=== PATIENT | female | born 1980 | race Two or more races ===

== ENCOUNTER 2019-10-26 20:16 | Inpatient (IN) | payer MEDICARE, MEDICAID ==
[~2019-10-26] VITALS: Ht 172.7 cm; Wt 57.6 kg
[2019-10-26 22:06] LABS: BASOPHILS % (AUTO) 0.8 % (0.0-2.0); EOSINOPHILS % (AUTO) 1.5 % (1.0-6.0); HEMATOCRIT 40.4 % (36-46); HEMOGLOBIN 13.4 g/dL (12.0-16.0); MEAN CORPUSCULAR HEMOGLOBIN 30.4 pg (26.0-34.0); MEAN CORPUSCULAR HGB CONC 33.3 G/dL (31.0-37.0); MEAN CORPUSCULAR VOLUME 91 fL (80-100); MONOCYTES # (AUTO) 1.2 K/uL (0.1-1.0); MONOCYTES % (AUTO) 13.6 % (2.0-9.0); NEUTROPHILS # (AUTO) 5.3 K/uL (1.8-7.7); NEUTROPHILS % (AUTO) 61.1 % (40.0-70.0); PLATELET COUNT (AUTO) 317 K/uL (150-450); RED BLOOD CELL COUNT(AUTO) 4.42 MIL/uL (4.00-5.20); RED CELL DISTRIBUTION WIDTH 12.8 % (11.5-14.5)
[2019-10-26 22:09] LABS: ANION GAP 8 mmol/L (8-16); CALCIUM, TOTAL 9.3 mg/dL (8.8-10.5); CARBON DIOXIDE 27 mmol/L (22-29); CHLORIDE 106 mmol/L (98-107); CREATININE 0.74 mg/dL (0.60-1.30); GLOMERULAR FILTR. RATE CALC > 60 mL/min (>60); GLUCOSE,RANDOM 93 mg/dL (70-110); POTASSIUM 3.9 mmol/L (3.5-5.1); SODIUM SERUM 141 mmol/L (136-145); UREA NITROGEN, BLOOD 26 mg/dL (7-18)
[2019-10-26 22:15] LABS: ALANINE AMINOTRANSFERASE 32 U/L (12-78); ALBUMIN 3.6 g/dL (3.4-5.0); ALKALINE PHOSPHATASE 63 U/L (46-116); ASPARTATE AMINOTRANSFERASE 31 U/L (15-37); BILIRUBIN,TOTAL 0.3 mg/dL (0.1-1.0); TOTAL PROTEIN, SERUM 7.9 g/dL (6.4-8.2)
[2019-10-26] MEDS ORDERED: LORazepam 2 MG TABLET PO PRN (22:30)
[2019-10-26] MEDS ORDERED: ZOLPIDEM TARTRATE 10 MG TABLET PO PRN (22:30)
[2019-10-26] MEDS ORDERED: PERMETHRIN 1% 60 ML LOTION TP ONE (23:30)
[2019-10-26] MEDS ORDERED: PERMETHRIN 5% 60 GM CREAM TP ONE (23:30)
[2019-10-27] MEDS ORDERED: DiphenhydrAMINE HCL 50 MG/ML VIAL IM ONE (00:15)
[2019-10-27] MEDS ORDERED: HALOPERIDOL LACTATE 5 MG/ML VIAL IM ONE (00:15)
[2019-10-27] MEDS ORDERED: LORazepam 2 MG/ML VIAL IM ONE (00:15)
[2019-10-27 03:21] VITALS: BP 128/79
[2019-10-27 03:41] VITALS: BP 128/79
[2019-10-27 16:05] VITALS: BP 110/54
[2019-10-27] MEDS: OLANZapine 5 MG RAPDIS TABLET PO PRN (18:07)
[2019-10-27] MEDS ORDERED: RisperiDONE 1 MG TABLET PO SCH (21:00)
[2019-10-28 07:42] LABS: CHOL/HDL RATIO 3.2 (3.9-5.7)
[2019-10-28 17:47] VITALS: BP 116/61
[2019-10-28] MEDS: RisperiDONE 2 MG TABLET PO SCH (20:43)
[2019-10-28] MEDS: DiphenhydrAMINE HCL 25 MG CAPSULE PO SCH (20:43)
[2019-10-28] MEDS ORDERED: RisperiDONE 2 MG TABLET PO SCH (21:00)
[2019-10-29] MEDS ORDERED: DIVALPROEX SODIUM 500 MG ER TABLET PO SCH (09:00)
[2019-10-29] MEDS: OLANZapine 5 MG RAPDIS TABLET PO PRN (15:58)
[2019-10-29 16:51] VITALS: BP 118/62
[2019-10-29] MEDS: RisperiDONE 2 MG TABLET PO SCH (20:10)
[2019-10-29] MEDS: DiphenhydrAMINE HCL 25 MG CAPSULE PO SCH (20:10)
[2019-10-29] MEDS ORDERED: RisperiDONE 2 MG TABLET PO SCH (21:00)
[2019-10-29] MEDS ORDERED: MAG HYDROX/AL HYDROX/SIMETH ES 30 ML SUSPENSION UDCUP PO PRN (21:15)
[2019-10-29] MEDS ORDERED: MAGNESIUM HYDROXIDE SUSPENSION 30 ML UDCUP PO PRN (21:15)
[2019-10-29] MEDS ORDERED: HydrOXYzine PAMOATE 50 MG CAPSULE PO PRN (21:15)
[2019-10-29] MEDS ORDERED: TUBERCULIN, PURIFIED PROTEIN DERIVATIVE 5 TU/0.1 ML SYRINGE ID ONE (21:15)
[2019-10-29] MEDS ORDERED: OLANZapine 5 MG RAPDIS TABLET PO PRN (21:15)
[2019-10-29] MEDS ORDERED: LOPERAMIDE HCL 2 MG CAPSULE PO PRN (21:15)
[2019-10-29] MEDS ORDERED: GuaiFENesin/D-METHORPHAN [SUGAR-FREE] 200-20MG/10 ML SYRUP UDCUP PO PRN (21:15)
[2019-10-29] MEDS ORDERED: PROMETHAZINE HCL 25 MG TABLET PO PRN (21:15)
[2019-10-30] MEDS: FOLIC ACID 1 MG TABLET PO SCH (09:28)
[2019-10-30] MEDS: MULTIVITAMINS WITH MINERALS, THERAPEUTIC TABLET PO SCH (09:28)
[2019-10-30] MEDS: THIAMINE 100 MG TABLET PO SCH ×2 (09:28→17:38)
[2019-10-30] MEDS: DIVALPROEX SODIUM 500 MG ER TABLET PO SCH (09:28)
[2019-10-30] MEDS: NALTREXONE HCL 50 MG TABLET PO SCH (09:29)
[2019-10-30 16:25] VITALS: BP 113/62
[2019-10-30] MEDS ORDERED: OLANZapine 5 MG RAPDIS TABLET PO SCH (21:00)
[2019-10-31 08:00] VITALS: BP 134/63
[2019-10-31] MEDS: MULTIVITAMINS WITH MINERALS, THERAPEUTIC TABLET PO SCH (08:20)
[2019-10-31] MEDS: THIAMINE 100 MG TABLET PO SCH ×2 (08:20→16:36)
[2019-10-31] MEDS: DIVALPROEX SODIUM 500 MG ER TABLET PO SCH (08:20)
[2019-10-31] MEDS: FOLIC ACID 1 MG TABLET PO SCH (08:20)
[2019-10-31] MEDS: NALTREXONE HCL 50 MG TABLET PO SCH (08:21)
[2019-10-31 17:01] VITALS: BP 124/70
[2019-10-31] MEDS: OLANZapine 10 MG RAPDIS TABLET PO SCH (20:22)
[2019-11-01 08:21] LABS: FREE T4 (FREE THYROXINE) 0.73 ng/dL (0.76-1.46); THYROID STIMULATING HORMONE 0.5 uIU/mL (0.36-3.74)
[2019-11-01] MEDS: MULTIVITAMINS WITH MINERALS, THERAPEUTIC TABLET PO SCH (08:50)
[2019-11-01] MEDS: THIAMINE 100 MG TABLET PO SCH ×2 (08:50→16:46)
[2019-11-01] MEDS: FOLIC ACID 1 MG TABLET PO SCH (08:50)
[2019-11-01] MEDS: DIVALPROEX SODIUM 500 MG ER TABLET PO SCH (08:50)
[2019-11-01] MEDS: NALTREXONE HCL 50 MG TABLET PO SCH (08:51)
[2019-11-01 16:00] VITALS: BP 103/73
[2019-11-01] MEDS: OLANZapine 10 MG RAPDIS TABLET PO SCH (20:21)
[2019-11-01 23:50] VITALS: BP 115/69
[2019-11-01] MEDS: ACETAMINOPHEN 325 MG TABLET PO PRN (23:50)
[2019-11-02] MEDS: NALTREXONE HCL 50 MG TABLET PO SCH (08:09)
[2019-11-02] MEDS: MULTIVITAMINS WITH MINERALS, THERAPEUTIC TABLET PO SCH (08:09)
[2019-11-02] MEDS: THIAMINE 100 MG TABLET PO SCH ×2 (08:09→16:05)
[2019-11-02] MEDS: DIVALPROEX SODIUM 500 MG ER TABLET PO SCH (08:09)
[2019-11-02] MEDS: FOLIC ACID 1 MG TABLET PO SCH (08:10)
[2019-11-02 08:41] VITALS: BP 125/63
[2019-11-02 16:00] VITALS: BP 104/66
[2019-11-02] MEDS ORDERED: PALIPERIDONE PALMITATE 234 MG/1.5 ML SYRINGE IM ONE (19:15)
[2019-11-02] MEDS ORDERED: PALIPERIDONE 1.5 MG ER TABLET PO PRN (19:15)
[2019-11-02] MEDS ORDERED: PALIPERIDONE 3 MG ER TABLET PO SCH (21:00)
[2019-11-03] MEDS: ACETAMINOPHEN 325 MG TABLET PO PRN (05:27)
[2019-11-03] MEDS: THIAMINE 100 MG TABLET PO SCH ×2 (08:29→16:39)
[2019-11-03] MEDS: NALTREXONE HCL 50 MG TABLET PO SCH (08:29)
[2019-11-03] MEDS: FOLIC ACID 1 MG TABLET PO SCH (08:29)
[2019-11-03] MEDS: DIVALPROEX SODIUM 250 MG ER TABLET PO SCH (08:29)
[2019-11-03] MEDS: MULTIVITAMINS WITH MINERALS, THERAPEUTIC TABLET PO SCH (08:29)
[2019-11-03 09:32] VITALS: BP 138/80
[2019-11-03] MEDS ORDERED: PENICILLIN G BENZATHINE LA 2,400,000 UNITS/4 ML SYRINGE IM ONE (14:00)
[2019-11-03 16:00] VITALS: BP 105/60
[2019-11-04 08:00] VITALS: BP 123/61
[2019-11-04] MEDS: DIVALPROEX SODIUM 250 MG ER TABLET PO SCH (08:34)
[2019-11-04] MEDS: MULTIVITAMINS WITH MINERALS, THERAPEUTIC TABLET PO SCH (08:34)
[2019-11-04] MEDS: FOLIC ACID 1 MG TABLET PO SCH (08:35)
[2019-11-04] MEDS: THIAMINE 100 MG TABLET PO SCH ×2 (08:35→15:57)
[2019-11-04] MEDS: NALTREXONE HCL 50 MG TABLET PO SCH (08:35)
[2019-11-04] MEDS ORDERED: PERMETHRIN 1% 60 ML LOTION TP ONE (15:30)
[2019-11-04 16:13] VITALS: BP 115/64
[2019-11-05 08:00] VITALS: BP 101/62
[2019-11-05] MEDS: THIAMINE 100 MG TABLET PO SCH ×2 (08:36→16:02)
[2019-11-05] MEDS: MULTIVITAMINS WITH MINERALS, THERAPEUTIC TABLET PO SCH (08:36)
[2019-11-05] MEDS: DIVALPROEX SODIUM 250 MG ER TABLET PO SCH (08:36)
[2019-11-05] MEDS: NALTREXONE HCL 50 MG TABLET PO SCH (08:37)
[2019-11-05] MEDS: FOLIC ACID 1 MG TABLET PO SCH (08:37)
[2019-11-05 18:46] VITALS: BP 82/43
[2019-11-06] MEDS ORDERED: PALIPERIDONE PALMITATE 156 MG/ML SYRINGE IM ONE (09:00)
[2019-11-06] MEDS: FOLIC ACID 1 MG TABLET PO SCH (09:09)
[2019-11-06] MEDS: MULTIVITAMINS WITH MINERALS, THERAPEUTIC TABLET PO SCH (09:09)
[2019-11-06] MEDS: DIVALPROEX SODIUM 250 MG ER TABLET PO SCH (09:09)
[2019-11-06] MEDS: NALTREXONE HCL 50 MG TABLET PO SCH (09:09)
[2019-11-06] MEDS: THIAMINE 100 MG TABLET PO SCH ×2 (09:10→16:13)
[2019-11-06] MEDS ORDERED: NALT50TA PO (10:18)
[2019-11-06] MEDS ORDERED: DIVA-85 PO (10:18)
[2019-11-06] MEDS ORDERED: PALI117D IM (10:18)
[2019-11-06 16:00] VITALS: BP 94/60
[2019-11-07] MEDS: MULTIVITAMINS WITH MINERALS, THERAPEUTIC TABLET PO SCH (08:00)
[2019-11-07] MEDS: DIVALPROEX SODIUM 500 MG ER TABLET PO SCH (08:01)
[2019-11-07] MEDS: FOLIC ACID 1 MG TABLET PO SCH (08:01)
[2019-11-07] MEDS: NALTREXONE HCL 50 MG TABLET PO SCH (08:01)
[2019-11-07] MEDS: THIAMINE 100 MG TABLET PO SCH ×2 (08:01→16:57)
[2019-11-07 16:16] VITALS: BP 107/65
[2019-11-08 09:00] VITALS: BP 90/50
[2019-11-08] MEDS: DIVALPROEX SODIUM 500 MG ER TABLET PO SCH (09:02)
[2019-11-08] MEDS: MULTIVITAMINS WITH MINERALS, THERAPEUTIC TABLET PO SCH (09:02)
[2019-11-08] MEDS: FOLIC ACID 1 MG TABLET PO SCH (09:03)
[2019-11-08] MEDS: THIAMINE 100 MG TABLET PO SCH ×2 (09:03→17:45)
[2019-11-08] MEDS: NALTREXONE HCL 50 MG TABLET PO SCH (09:03)
[2019-11-08 16:22] VITALS: BP 105/55
[2019-11-09 08:00] VITALS: BP 95/48
[2019-11-09] MEDS: MULTIVITAMINS WITH MINERALS, THERAPEUTIC TABLET PO SCH (08:26)
[2019-11-09] MEDS: NALTREXONE HCL 50 MG TABLET PO SCH (08:26)
[2019-11-09] MEDS: DIVALPROEX SODIUM 500 MG ER TABLET PO SCH (08:26)
[2019-11-09 16:05] VITALS: BP 110/75
[2019-11-09] MEDS ORDERED: OLANZapine 5 MG RAPDIS TABLET PO PRN (20:30)
[2019-11-09] MEDS: OLANZapine 5 MG RAPDIS TABLET PO SCH (21:10)
[2019-11-10] MEDS: MULTIVITAMINS WITH MINERALS, THERAPEUTIC TABLET PO SCH (08:22)
[2019-11-10] MEDS: DIVALPROEX SODIUM 500 MG ER TABLET PO SCH (08:22)
[2019-11-10] MEDS: NALTREXONE HCL 50 MG TABLET PO SCH (08:22)
[2019-11-10] MEDS ORDERED: PERMETHRIN 5% 60 GM CREAM TP ONE (14:30)
[2019-11-10] MEDS ORDERED: PERMETHRIN 1% 60 ML LOTION TP ONE (14:45)
[2019-11-10 16:52] VITALS: BP 100/60
[2019-11-10] MEDS: OLANZapine 5 MG RAPDIS TABLET PO SCH (22:16)
[2019-11-11] MEDS: MULTIVITAMINS WITH MINERALS, THERAPEUTIC TABLET PO SCH (08:55)
[2019-11-11] MEDS: DIVALPROEX SODIUM 500 MG ER TABLET PO SCH (08:55)
[2019-11-11] MEDS: NALTREXONE HCL 50 MG TABLET PO SCH (08:55)
[2019-11-11 16:14] VITALS: BP 95/66
[2019-11-11] MEDS: OLANZapine 5 MG RAPDIS TABLET PO SCH (20:04)
[2019-11-11] MEDS ORDERED: OLANZapine 10 MG RAPDIS TABLET PO SCH (21:00)
[2019-11-12 08:00] VITALS: BP 94/51
[2019-11-12] MEDS: NALTREXONE HCL 50 MG TABLET PO SCH (08:35)
[2019-11-12] MEDS: DIVALPROEX SODIUM 500 MG ER TABLET PO SCH (08:35)
[2019-11-12] MEDS: MULTIVITAMINS WITH MINERALS, THERAPEUTIC TABLET PO SCH (08:35)
[2019-11-12] MEDS ORDERED: DIVA-80 PO (10:50)
[2019-11-12] MEDS ORDERED: OLAN7.5T2 PO (10:52)
[2019-11-12] MEDS ORDERED: PENICILLIN G BENZATHINE LA 2,400,000 UNITS/4 ML SYRINGE IM ONE (11:45)
[2019-11-12] MEDS ORDERED: PGLA4I IM (11:52)
[2019-11-12 16:36] VITALS: BP 101/77
[2019-11-12] MEDS ORDERED: OLANZapine 5 MG RAPDIS TABLET PO SCH (21:00)
[2019-11-13] MEDS: NALTREXONE HCL 50 MG TABLET PO SCH (08:08)
[2019-11-13] MEDS: DIVALPROEX SODIUM 500 MG ER TABLET PO SCH (08:08)
[2019-11-13] MEDS: MULTIVITAMINS WITH MINERALS, THERAPEUTIC TABLET PO SCH (08:08)
[2019-11-13 08:55] LABS: HIV 1-2 SCREEN 4TH GEN W/RFLX Non Reactive (Non Reactive)
== END 2019-11-13 14:15 | disposition home or self-care (01) | DRG 885 ==
LOC: EMS 20:16 → 3EX 22:16
PROVIDERS: ADMIT Psychiatry & Neurology Psychiatry; ATTEND Psychiatry & Neurology Psychiatry
DX: F25.0 Schizoaffective disorder, bipolar type (principal); R45.851 Suicidal ideations; F10.10 Alcohol abuse, uncomplicated; F19.10 Other psychoactive substance abuse, uncomplicated; F17.210 Nicotine dependence, cigarettes, uncomplicated; B86 Scabies; B85.2 Pediculosis, unspecified; Z20.828 Contact with and (suspected) exposure to other viral communicable diseases; Z59.0 Homelessness
CPT/HCPCS: 84439; 84443; 86592; 86593; 86609; 86631; 86632; 86780; 87389; G0378; G0480; J0561; J1200; J1630; J2060

== ENCOUNTER 2021-05-02 09:53 | Inpatient (IN) | payer MEDICARE, MEDICAID ==
[~2021-05-02] VITALS: Ht 154.9 cm; Wt 58.1 kg
[~2021-05-02 09:53] MED LIST: DIVA-80 PO; NALT50TA PO; OLAN7.5T22 PO; PGLA4I IM
[2021-05-02 12:09] LABS: BASOPHILS % (AUTO) 0.5 % (0.0-2.0); EOSINOPHILS % (AUTO) 2.4 % (1.0-6.0); HEMATOCRIT 34.3 % (36-46); HEMOGLOBIN 11.5 g/dL (12.0-16.0); LYMPHOCYTES # (AUTO) 1.3 K/uL (1.0-4.8); LYMPHOCYTES % (AUTO) 13.3 % (22.0-44.0); MEAN CORPUSCULAR HGB CONC 33.6 G/dL (31.0-37.0); MEAN CORPUSCULAR VOLUME 90 fL (80-100); MONOCYTES % (AUTO) 10.5 % (2.0-9.0); NEUTROPHILS # (AUTO) 6.9 K/uL (1.8-7.7); NEUTROPHILS % (AUTO) 73.3 % (40.0-70.0); PLATELET COUNT (AUTO) 455 K/uL (150-450); RED BLOOD CELL COUNT(AUTO) 3.84 MIL/uL (4.00-5.20); RED CELL DISTRIBUTION WIDTH 13.7 % (11.5-14.5)
[2021-05-02 12:27] LABS: ANION GAP 7 mmol/L (8-16); CALCIUM, TOTAL 9.1 mg/dL (8.8-10.5); CARBON DIOXIDE 27 mmol/L (22-29); CHLORIDE 105 mmol/L (98-107); GLOMERULAR FILTR. RATE CALC > 60 mL/min (>60); GLUCOSE,RANDOM 100 mg/dL (70-110); POTASSIUM 4.3 mmol/L (3.5-5.1); SODIUM SERUM 139 mmol/L (136-145); UREA NITROGEN, BLOOD 26 mg/dL (7-18)
[2021-05-02 12:31] LABS: ALANINE AMINOTRANSFERASE 34 U/L (12-78); ALBUMIN 2.7 g/dL (3.4-5.0); ALKALINE PHOSPHATASE 73 U/L (46-116); ASPARTATE AMINOTRANSFERASE 40 U/L (15-37); BILIRUBIN,TOTAL 0.2 mg/dL (0.1-1.0); TOTAL PROTEIN, SERUM 7.4 g/dL (6.4-8.2)
[2021-05-02 12:34] LABS: VALPROIC ACID < 3 mcg/mL (50-100)
[2021-05-02 15:32] LABS: COVID AG,FIA SOURCE NASOPHARYNGEAL
[2021-05-02] MEDS ORDERED: HALOPERIDOL 5 MG TABLET PO PRN (19:00)
[2021-05-02] MEDS ORDERED: ZOLPIDEM TARTRATE 10 MG TABLET PO PRN (19:00)
[2021-05-03] MEDS: LORazepam 2 MG TABLET PO PRN (06:06)
[2021-05-03 08:19] LABS: CHOL/HDL RATIO 2.4 (3.9-5.7); CHOLESTEROL 202 mg/dL (131-200); HDL CHOLESTEROL 85 mg/dL (40-60); LDL CHOL (CALC.) 104 mg/dL (0-130); TRIGLYCERIDES 66 mg/dL (15-150)
[2021-05-03] MEDS ORDERED: ACETAMINOPHEN 325 MG TABLET PO PRN (12:00)
[2021-05-03] MEDS ORDERED: MAG HYDROX/AL HYDROX/SIMETH ES 30 ML SUSPENSION UDCUP PO PRN (12:00)
[2021-05-03] MEDS ORDERED: PETROLATUM,WHITE 28 GM JELLY TP PRN (12:00)
[2021-05-03] MEDS ORDERED: MAGNESIUM HYDROXIDE SUSPENSION 30 ML UDCUP PO PRN (12:00)
[2021-05-03] MEDS ORDERED: GuaiFENesin/D-METHORPHAN [SUGAR-FREE] 200-20MG/10 ML SYRUP UDCUP PO PRN (12:00)
[2021-05-03] MEDS ORDERED: DOCUSATE SODIUM 100 MG CAPSULE PO PRN (12:00)
[2021-05-03] MEDS ORDERED: NICOTINE 14 MG/24 HOUR PATCH TD PRN (12:00)
[2021-05-03] MEDS ORDERED: CloNIDine HCL 0.1 MG TABLET PO PRN (12:00)
[2021-05-03] MEDS ORDERED: ONDANSETRON HCL 4 MG TABLET PO PRN (12:00)
[2021-05-03] MEDS ORDERED: ALBUTEROL SULFATE HFA 90 MCG/PUFF 8 GM INHALER IH PRN (12:00)
[2021-05-03] MEDS ORDERED: IBUPROFEN 400 MG TABLET PO PRN (12:00)
[2021-05-03 12:55] VITALS: BP 130/80
[2021-05-03 15:31] VITALS: BP 130/80
[2021-05-03 16:28] VITALS: BP 136/85
[2021-05-04 05:15] VITALS: BP 110/85
[2021-05-04 08:04] VITALS: BP 139/74
[2021-05-04 08:48] LABS: AMPHET/METH SCREEN,URINE POSITIVE (NEGATIVE); BARBITURATE SCREEN, URINE NEGATIVE (NEGATIVE); BENZODIAZEPINES SCREEN,URINE NEGATIVE (NEGATIVE); CANNABINOID SCREEN,URINE POSITIVE (NEGATIVE); COCAINE SCREEN,URINE NEGATIVE (NEGATIVE); METHADONE SCREEN, URINE NEGATIVE (NEGATIVE); OPIATE SCREEN,URINE NEGATIVE (NEGATIVE)
[2021-05-04 08:50] LABS: PHENCYCLIDINE SCREEN,URINE NEGATIVE (NEGATIVE)
[2021-05-04] MEDS: LORazepam 2 MG TABLET PO PRN (09:46)
[2021-05-04 16:13] VITALS: BP 129/73
[2021-05-04] MEDS: OLANZapine 5 MG TABLET PO SCH (17:10)
[2021-05-05 07:10] VITALS: BP 130/74
[2021-05-05 08:17] VITALS: BP 129/62
[2021-05-05] MEDS: LORazepam 2 MG TABLET PO PRN (08:22)
[2021-05-05] MEDS: OLANZapine 5 MG TABLET PO SCH ×2 (08:22→16:45)
[2021-05-05] MEDS: LOPERAMIDE HCL 2 MG CAPSULE PO PRN (08:22)
[2021-05-05 15:53] VITALS: BP 121/61
[2021-05-05 19:10] VITALS: BP 121/61
[2021-05-06 06:17] VITALS: BP 118/70
[2021-05-06] MEDS: OLANZapine 5 MG TABLET PO SCH ×2 (08:05→16:47)
[2021-05-06] MEDS: LORazepam 2 MG TABLET PO PRN ×2 (08:05→16:48)
[2021-05-06] MEDS: LOPERAMIDE HCL 2 MG CAPSULE PO PRN ×2 (08:26→12:24)
[2021-05-06 11:46] VITALS: BP 110/68
[2021-05-06] MEDS: MetroNIDAZOLE 500 MG TABLET PO SCH ×2 (13:00→16:47)
[2021-05-06 15:41] LABS: GLUCOMETER DEV NAME(LOC) POC.BV
[2021-05-06 16:15] VITALS: BP 139/77
[2021-05-07 06:58] VITALS: BP 107/74
[2021-05-07 08:32] VITALS: BP 121/61
[2021-05-07] MEDS: OLANZapine 5 MG TABLET PO SCH ×2 (08:46→16:02)
[2021-05-07] MEDS: MetroNIDAZOLE 500 MG TABLET PO SCH ×3 (08:46→16:02)
[2021-05-07 15:50] VITALS: BP 120/65
[2021-05-07 16:04] VITALS: BP 120/65
[2021-05-08 01:45] VITALS: BP 124/78
[2021-05-08 08:08] VITALS: BP 134/96
[2021-05-08] MEDS: MetroNIDAZOLE 500 MG TABLET PO SCH ×3 (08:29→17:01)
[2021-05-08] MEDS: OLANZapine 5 MG TABLET PO SCH ×2 (08:29→17:02)
[2021-05-08 16:04] VITALS: BP 128/72
[2021-05-09 00:36] VITALS: BP 117/68
[2021-05-09] MEDS: MetroNIDAZOLE 500 MG TABLET PO SCH ×3 (08:15→16:49)
[2021-05-09] MEDS: OLANZapine 5 MG TABLET PO SCH ×2 (08:15→16:49)
[2021-05-09 09:36] VITALS: BP 150/70
[2021-05-09 12:25] VITALS: BP 116/64
[2021-05-09 15:25] LABS: GLUCOMETER DEV NAME(LOC) POC.BV
[2021-05-09 16:07] VITALS: BP 115/73
[2021-05-10 04:27] VITALS: BP 111/66
[2021-05-10] MEDS: OLANZapine 5 MG TABLET PO SCH ×2 (09:41→16:25)
[2021-05-10] MEDS: MetroNIDAZOLE 500 MG TABLET PO SCH ×3 (09:42→16:25)
[2021-05-10 10:08] VITALS: BP 103/54
[2021-05-10 16:06] VITALS: BP 108/62
[2021-05-10 17:06] LABS: OVA AND PARASITES EXAM Final report
[2021-05-11 05:08] VITALS: BP 114/64
[2021-05-11] MEDS: OLANZapine 5 MG TABLET PO SCH ×2 (08:22→16:02)
[2021-05-11] MEDS: MULTIVITAMINS WITH MINERALS, THERAPEUTIC TABLET PO SCH (08:22)
[2021-05-11] MEDS: MetroNIDAZOLE 500 MG TABLET PO SCH ×3 (08:22→16:03)
[2021-05-11 09:04] VITALS: BP 122/68
[2021-05-11 16:02] VITALS: BP 112/69
[2021-05-12 06:30] VITALS: BP 106/73
[2021-05-12] MEDS: MULTIVITAMINS WITH MINERALS, THERAPEUTIC TABLET PO SCH (07:56)
[2021-05-12] MEDS: MetroNIDAZOLE 500 MG TABLET PO SCH ×3 (07:56→16:12)
[2021-05-12] MEDS: OLANZapine 5 MG TABLET PO SCH ×2 (07:57→16:12)
[2021-05-12 08:46] VITALS: BP 110/70
[2021-05-12 17:00] VITALS: BP 110/65
[2021-05-13 04:25] VITALS: BP 108/68
[2021-05-13] MEDS: OLANZapine 5 MG TABLET PO SCH ×2 (08:06→16:25)
[2021-05-13] MEDS: MetroNIDAZOLE 500 MG TABLET PO SCH ×3 (08:07→16:25)
[2021-05-13] MEDS: MULTIVITAMINS WITH MINERALS, THERAPEUTIC TABLET PO SCH (08:07)
[2021-05-13 09:06] VITALS: BP 103/65
[2021-05-13 16:13] VITALS: BP 102/65
[2021-05-14 05:02] VITALS: BP 108/59
[2021-05-14 08:22] VITALS: BP 114/66
[2021-05-14] MEDS: OLANZapine 5 MG TABLET PO SCH ×2 (08:44→16:21)
[2021-05-14] MEDS: MULTIVITAMINS WITH MINERALS, THERAPEUTIC TABLET PO SCH (08:44)
[2021-05-14] MEDS: MetroNIDAZOLE 500 MG TABLET PO SCH ×3 (08:44→16:21)
[2021-05-14 16:05] VITALS: BP 110/61
[2021-05-15 05:11] VITALS: BP 108/58
[2021-05-15 08:23] VITALS: BP 101/64
[2021-05-15] MEDS: MULTIVITAMINS WITH MINERALS, THERAPEUTIC TABLET PO SCH (08:33)
[2021-05-15] MEDS: MetroNIDAZOLE 500 MG TABLET PO SCH ×3 (08:33→16:30)
[2021-05-15] MEDS: OLANZapine 5 MG TABLET PO SCH ×2 (08:33→16:30)
[2021-05-15 16:12] VITALS: BP 108/68
[2021-05-16 01:01] VITALS: BP 101/62
[2021-05-16 06:27] LABS: GLUCOMETER DEV NAME(LOC) POC.BV
[2021-05-16] MEDS: MetroNIDAZOLE 500 MG TABLET PO SCH ×3 (08:33→16:32)
[2021-05-16] MEDS: MULTIVITAMINS WITH MINERALS, THERAPEUTIC TABLET PO SCH (08:33)
[2021-05-16] MEDS: OLANZapine 5 MG TABLET PO SCH ×2 (08:34→16:32)
[2021-05-16 09:40] VITALS: BP 113/62
[2021-05-16] MEDS: RisperiDONE 1 MG TABLET PO SCH ×2 (09:56→17:01)
[2021-05-16 16:10] VITALS: BP 100/63
[2021-05-17 00:11] VITALS: BP 129/75
[2021-05-17 08:05] VITALS: BP 100/50
[2021-05-17] MEDS: RisperiDONE 1 MG TABLET PO SCH ×2 (08:14→16:15)
[2021-05-17] MEDS: MetroNIDAZOLE 500 MG TABLET PO SCH ×3 (08:14→16:14)
[2021-05-17] MEDS: OLANZapine 5 MG TABLET PO SCH ×2 (08:14→16:15)
[2021-05-17] MEDS: MULTIVITAMINS WITH MINERALS, THERAPEUTIC TABLET PO SCH (08:14)
[2021-05-17 16:02] VITALS: BP 108/64
[2021-05-18 01:09] VITALS: BP 114/63
[2021-05-18 06:17] LABS: BASOPHILS % (AUTO) 0.8 % (0.0-2.0); EOSINOPHILS % (AUTO) 3.4 % (1.0-6.0); HEMATOCRIT 34.9 % (36-46); HEMOGLOBIN 11.6 g/dL (12.0-16.0); LYMPHOCYTES # (AUTO) 1.7 K/uL (1.0-4.8); LYMPHOCYTES % (AUTO) 19.2 % (22.0-44.0); MEAN CORPUSCULAR HEMOGLOBIN 29.7 pg (26.0-34.0); MEAN CORPUSCULAR HGB CONC 33.4 G/dL (31.0-37.0); MEAN CORPUSCULAR VOLUME 89 fL (80-100); MONOCYTES # (AUTO) 0.8 K/uL (0.1-1.0); MONOCYTES % (AUTO) 9.3 % (2.0-9.0); NEUTROPHILS # (AUTO) 5.8 K/uL (1.8-7.7); NEUTROPHILS % (AUTO) 67.3 % (40.0-70.0); PLATELET COUNT (AUTO) 327 K/uL (150-450); RED BLOOD CELL COUNT(AUTO) 3.92 MIL/uL (4.00-5.20); RED CELL DISTRIBUTION WIDTH 13.7 % (11.5-14.5)
[2021-05-18 08:01] VITALS: BP 114/57
[2021-05-18] MEDS: MULTIVITAMINS WITH MINERALS, THERAPEUTIC TABLET PO SCH (08:20)
[2021-05-18] MEDS: OLANZapine 5 MG TABLET PO SCH ×2 (08:20→16:25)
[2021-05-18] MEDS: RisperiDONE 1 MG TABLET PO SCH ×2 (08:23→16:25)
[2021-05-18 16:32] VITALS: BP 107/62
[2021-05-19 01:25] VITALS: BP 110/78
[2021-05-19 08:15] VITALS: BP 98/54
[2021-05-19] MEDS: RisperiDONE 1 MG TABLET PO SCH ×2 (08:29→16:15)
[2021-05-19] MEDS: OLANZapine 5 MG TABLET PO SCH ×2 (08:29→16:15)
[2021-05-19] MEDS: MULTIVITAMINS WITH MINERALS, THERAPEUTIC TABLET PO SCH (08:29)
[2021-05-19 16:12] VITALS: BP 114/64
[2021-05-20 08:05] VITALS: BP 104/47
[2021-05-20 08:30] VITALS: BP 109/75
[2021-05-20] MEDS: MULTIVITAMINS WITH MINERALS, THERAPEUTIC TABLET PO SCH (08:33)
[2021-05-20] MEDS: OLANZapine 5 MG TABLET PO SCH ×2 (08:33→16:27)
[2021-05-20] MEDS: RisperiDONE 1 MG TABLET PO SCH ×2 (08:33→16:27)
[2021-05-20 16:07] VITALS: BP 110/66
[2021-05-21 05:31] VITALS: BP 106/58
[2021-05-21] MEDS: OLANZapine 5 MG TABLET PO SCH ×2 (08:06→16:12)
[2021-05-21] MEDS: RisperiDONE 1 MG TABLET PO SCH ×2 (08:06→16:12)
[2021-05-21] MEDS: MULTIVITAMINS WITH MINERALS, THERAPEUTIC TABLET PO SCH (08:06)
[2021-05-21 08:26] VITALS: BP 113/60
[2021-05-21 16:00] VITALS: BP 114/66
[2021-05-22 01:00] VITALS: BP_SYST 112; BP_DIAS 65; BP_DIAS 83
[2021-05-22 08:23] VITALS: BP 109/58
[2021-05-22] MEDS: MULTIVITAMINS WITH MINERALS, THERAPEUTIC TABLET PO SCH (08:32)
[2021-05-22] MEDS: OLANZapine 5 MG TABLET PO SCH (08:32)
[2021-05-22] MEDS: RisperiDONE 1 MG TABLET PO SCH (08:32)
[2021-05-22] MEDS ORDERED: RISP0.5T39 PO (11:08)
[2021-05-22] MEDS ORDERED: OLAN10TA74 PO (11:09)
== END 2021-05-22 13:00 | disposition home or self-care (01) | DRG 885 ==
LOC: EMS 09:59 → B3A 05-03 09:00 → B2S 05-10 09:33 → B2X 05-16 12:31 → B2S 05-16 16:36
PROVIDERS: ADMIT Psychiatry & Neurology Child & Adolescent Psychiatry; ATTEND Psychiatry & Neurology Child & Adolescent Psychiatry
DX: F20.0 Paranoid schizophrenia (principal); D64.9 Anemia, unspecified; D75.839 Thrombocytosis, unspecified; E78.5 Hyperlipidemia, unspecified; Z59.00 Homelessness unspecified; F41.9 Anxiety disorder, unspecified; F17.210 Nicotine dependence, cigarettes, uncomplicated; Z20.822 Contact with and (suspected) exposure to COVID-19; F15.99 Other stimulant use, unspecified with unspecified stimulant-induced disorder; F12.99 Cannabis use, unspecified with unspecified cannabis-induced disorder; Z91.14 Patient's other noncompliance with medication regimen; Z72.89 Other problems related to lifestyle
CPT/HCPCS: 80053; 80061; 80164; 80307; 85025; 87081; 87177; 99285; G0480